=== PATIENT | female | born 1985 | race American Indian/Alaskan Native ===

== ENCOUNTER 2016-09-03 12:16 | Emergency (ER) | payer MEDICAID ==
[2016-09-03 12:25] VITALS: TEMP 98
[2016-09-03 12:26] VITALS: BMI 25.1
[2016-09-03 12:30] VITALS: O2SAT 98
--- NOTE | 2016-09-03 13:23 | ED PDOC ---
HPI: General Adult Time Seen by Provider: 09/03/16 12:32 Chief Complaint (Nursing): Headache Chief Complaint (Provider): medical clearance History Per: Patient History/Exam Limitations: no limitations Onset/Duration Of Symptoms: Hrs (x 1) Have you had recent travel within the past 21 days to any of the following countries: [place], [place], [place] or [place]?: No Current Symptoms Are (Timing): Gone Now Additional Complaint(s): Jody Jones is a 30 year old female, with a previous medical history of hypertension, who presents to the ED for medical clearance to return back to work after a hypertensive episode at work yesterday, Pt reports she was not feeling well while at work and was sent home after measuring her blood pressure and finding it was elevated at the time. She states she is unable to return to work unless she was medically cleared. Patient denies any current symptoms and states symptoms resolved spontaneously. Patient denies any headache, dizziness, shortness of breath, chest pain, nausea or vomiting. She has not been taking her blood pressure medication because she ran out and her pharmacy is closed on the weekend so she will hop picker her medication tomorrow from the pharmacy. PMD: none provided Past Medical History Reviewed: Historical Data, Nursing Documentation, Vital Signs Vital Signs: Last Vital Signs Temp 98.0 F 09/03/16 12:24 Pulse 85 09/03/16 12:24 Resp 16 09/03/16 12:24 BP 140/84 09/03/16 13:52 Pulse Ox 98 09/03/16 13:24 - Medical History PMH: HTN Denies: Chronic Kidney Disease - Surgical History Surgical History: (x1) - Family History Family History: States: Unknown Family Hx - Social History Current smoker - smoking cessation education provided: No - Home Medications Home Medications: Ambulatory Orders Medication Instructions Recorded hydroCHLOROthiazide [Microzide] 12.5 mg PO DAILY #10 cap 04/16/16 Mag&Al/Simet/Diphen/Lido [First 10 ml MM QID PRN #1 kit 04/23/16 Magic Mouthwash] Cyclobenzaprine [Cyclobenzaprine 10 mg PO BID #14 tab 06/03/16 HCl] - Allergies Allergies/Adverse Reactions: Allergies Allergy/AdvReac Type Severity Reaction Status Date / Time No Known Allergies Allergy Verified 09/03/16 12:28 Review of Systems ROS Statement: Except As Marked, All Systems Reviewed And Found Negative ( denies any active medical complaints) Constitutional: Negative for: Fever, Chills Cardiovascular: Negative for: Chest Pain Respiratory: Negative for: Shortness of Breath Gastrointestinal: Negative for: Nausea, Vomiting Neurological: Negative for: Headache, Dizziness Physical Exam - Reviewed Nursing Documentation Reviewed: Yes Vital Signs Reviewed: Yes - Physical Exam Appears: Positive for: Well, Non-toxic, No Acute Distress Head Exam: Positive for: ATRAUMATIC, NORMAL INSPECTION, NORMOCEPHALIC Skin: Positive for: Normal Color, Warm, DRY Eye Exam: Positive for: EOMI, Normal appearance, PERRL ENT: Positive for: Normal ENT Inspection Neck: Positive for: Normal, Painless ROM Cardiovascular/Chest: Positive for: Regular Rate, Rhythm Respiratory: Positive for: CNT, Normal Breath Sounds Gastrointestinal/Abdominal: Positive for: Normal Exam, Bowel Sounds, Soft Back: Positive for: Normal Inspection Extremity: Positive for: Normal ROM Neurologic/Psych: Positive for: Alert, Oriented - ECG O2 Sat by Pulse Oximetry: 98 (RA) Pulse Ox Interpretation: Normal Medical Decision Making Medical Decision Making: Initial Impression: high blood pressure Initial Plan: * hydrodiuril * reevaluation Scribe Attestation: Documented by Emerita Philip, acting as a scribe for Marisela Morris MD. Provider Scribe Attestation: All medical record entries made by the Scribe were at my direction and personally dictated by me. I have reviewed the chart and agree that the record accurately reflects my personal performance of the history, physical exam, medical decision making, and the department course for this patient. I have also personally directed, reviewed, and agree with the discharge instructions and disposition. Disposition - Clinical Impression Clinical Impression: Hypertension - Patient ED Disposition Is Patient to be Admitted: No Doctor Will See Patient In The: Office Counseled Patient/Family Regarding: Diagnosis, Need For Followup - Disposition Referrals: [facility] [Outside] [facility] [Outside] Disposition Time: 13:30 Condition: STABLE Instructions: Hypertension (ED) Forms: [facility] ED School/Work Excuse - POA Present On Arrival: None
[2016-09-03 14:11] VITALS: BP 139/86; PULSE 80; RESP 18
== END 2016-09-03 14:11 | disposition home or self-care (01) ==
LOC: H.ER 12:16
DX: I10 Essential (primary) hypertension (principal)

== ENCOUNTER 2017-08-23 09:41 | Emergency (ER) | payer MEDICAID ==
[2017-08-23 09:51] VITALS: BMI 23.8
[2017-08-23 09:52] VITALS: BP 136/83; PULSE 79; RESP 18; TEMP 99.1; O2SAT 100
--- NOTE | 2017-08-23 10:13 | ED PDOC ---
HPI: General Adult Time Seen by Provider: 08/23/17 09:57 Chief Complaint (Nursing): GI Problem Chief Complaint (Provider): lump in rectal area History Per: Patient History/Exam Limitations: no limitations Onset/Duration Of Symptoms: Days (x2) Current Symptoms Are (Timing): Still Present Additional Complaint(s): Jody Jones is a 31 year old female, with a past medical history of HTN, who presents to the emergency department complaining of a lump in the rectal area onset for x2 days. Patient reports mild pain during bowel movements but no bleeding and states its just uncomfortable to walk. Patient further states that x7 years ago when she had her daughter, she was found to have hemorrhoids but the doctor told her if it didn't bother to leave it alone. She denies any abdominal pain, urinary symptoms, fever, chills or back pain. No further medical complaints. PMD: Dr. Balderas Past Medical History Reviewed: Historical Data, Nursing Documentation, Vital Signs Vital Signs: Last Vital Signs Temp 99.1 F 08/23/17 09:50 Pulse 79 08/23/17 09:50 Resp 18 08/23/17 09:50 BP 136/83 08/23/17 09:50 Pulse Ox 100 08/23/17 10:22 - Medical History PMH: HTN Denies: Chronic Kidney Disease - Surgical History Surgical History: (x1) - Family History Family History: States: Unknown Family Hx - Social History Current smoker - smoking cessation education provided: No Alcohol: Social Drugs: Denies - Home Medications Home Medications: Ambulatory Orders Medication Instructions Recorded hydroCHLOROthiazide [Microzide] 12.5 mg PO DAILY #10 cap 04/16/16 Mag&Al/Simet/Diphen/Lido [First 10 ml MM QID PRN #1 kit 04/23/16 Magic Mouthwash] Cyclobenzaprine [Cyclobenzaprine 10 mg PO BID #14 tab 06/03/16 HCl] Hydrocortisone 2.5% (Rectal) 30 applic [place] BID 5 Days tube 08/23/17 [Anusol-HC] Ibuprofen [Motrin] 600 mg PO TID 7 Days tab 08/23/17 - Allergies Allergies/Adverse Reactions: Allergies Allergy/AdvReac Type Severity Reaction Status Date / Time No Known Allergies Allergy Verified 08/23/17 09:54 Review of Systems Constitutional: Negative for: Fever, Chills Gastrointestinal: Positive for: Other (lump in rectal area). Negative for: Abdominal Pain Genitourinary Female: Negative for: Dysuria, Frequency, Incontinence Musculoskeletal: Negative for: Back Pain Physical Exam - Reviewed Nursing Documentation Reviewed: Yes Vital Signs Reviewed: Yes - Physical Exam Appears: Positive for: Non-toxic, No Acute Distress Skin: Positive for: Normal Color, Warm, Dry Cardiovascular/Chest: Positive for: Regular Rate, Rhythm. Negative for: Murmur Respiratory: Positive for: Normal Breath Sounds. Negative for: Respiratory Distress Gastrointestinal/Abdominal: Positive for: Normal Exam, Soft. Negative for: Tenderness Back: Positive for: Normal Inspection. Negative for: L CVA Tenderness, R CVA Tenderness, Vertebral Tenderness Rectal: Positive for: Rectal Tone Is: (intact ), Hemorrhoids (9 o'clock position tender but no discharge or surrounding erythema.), Other (No gross blood identified). Negative for: Tenderness (rectum nontender except near hemorrhoid. ) - ECG O2 Sat by Pulse Oximetry: 100 (RA) Pulse Ox Interpretation: Normal Medical Decision Making Medical Decision Making: Initial Impression: Hemorrhoids Initial Plan: --Motrin tab 600 mg PO Pt. tolerated PO. Fu with pcp. Has appt with clinic in few days. Pain controlled. Pt. aaox3. Scribe Attestation: Documented by Earl Chao, acting as a scribe for Jimbo Walker MD Provider Scribe Attestation: All medical record entries made by the Scribe were at my direction and personally dictated by me. I have reviewed the chart and agree that the record accurately reflects my personal performance of the history, physical exam, medical decision making, and the department course for this patient. I have also personally directed, reviewed, and agree with the discharge instructions and disposition. Disposition - Clinical Impression Clinical Impression: Acute hemorrhoid - Disposition Referrals: [facility] [Outside] - 08/27/17 Disposition Time: 09:55 Condition: STABLE Additional Instructions: Return if not better in 3 days. Prescriptions: Hydrocortisone 2.5% (Rectal) [Anusol-HC] 30 applic [place] BID 5 Days tube Ibuprofen [Motrin] 600 mg PO TID 7 Days tab Forms: [facility] ([place]), [facility] ED School/Work Excuse
== END 2017-08-23 11:36 | disposition home or self-care (01) ==
LOC: H.ER 09:41
DX: K64.9 Unspecified hemorrhoids (principal); I10 Essential (primary) hypertension